=== PATIENT | female | born 1950 | race Caucasian/White ===

== ENCOUNTER 2018-09-10 09:59 | Outpatient (CLI) | payer MEDICARE, OTHER ==
--- NOTE | 2018-09-10 13:32 | XRAY Report ---
Reason: PAIN IN RIGHT LEG Procedure Date: 09/10/2018 Accession Number: [id number] / [id number] Procedure: XR - Knee 3 View RT CPT Code: FULL RESULT: EXAM: RIGHT KNEE RADIOGRAPHY EXAM DATE: 09/10/2018 10:04 AM. CLINICAL HISTORY: Pain in right leg. COMPARISON: None. TECHNIQUE: 3 views. FINDINGS: Bones: Normal. No fractures or bone lesions. Joints: Normal. No effusion. No subluxations. Soft Tissues: Normal. No soft tissue swelling. IMPRESSION: Normal knee radiography. [facility]
--- NOTE | 2018-09-10 13:32 | XRAY Report ---
Reason: PAIN IN RIGHT LEG Procedure Date: 09/10/2018 Accession Number: [id number] / [id number] Procedure: XR - Tib/Fib RT CPT Code: FULL RESULT: EXAM: RIGHT TIBIA/FIBULA RADIOGRAPHY EXAM DATE: 09/10/2018 10:26 AM. CLINICAL HISTORY: Pain in right leg. COMPARISON: None. TECHNIQUE: 2 views. FINDINGS: Bones: There is mild prominence of the posterior tibial cortex along its proximal third without evidence of aggressive periosteal reaction or aggressive osseous lesion, nonspecific finding. There is deformity of the shaft of the fibula. No fracture. Joints: The visualized knee and ankle joints are normal. No effusions. Soft Tissues: Normal. No soft tissue swelling. IMPRESSION: Nonspecific prominence of the posterior cortex of the proximal third of the tibial diaphysis as described above in the setting of a deformed tibial shaft may be sequela of remote fractures. Recommendation: Correlation to history. [facility]
== END 2018-09-10 10:00 | disposition home or self-care (01) ==
LOC: DI 09:59
PROVIDERS: ATTEND Nurse Practitioner Family
DX: M79.604 Pain in right leg (principal); M21.961 Unspecified acquired deformity of right lower leg

== ENCOUNTER 2018-11-08 10:59 | Outpatient (CLI) | payer MEDICARE, OTHER ==
[2018-11-08 17:53] LABS: FREE T3 4.69 pg/mL (2.5-3.9)
[2018-11-08 17:54] LABS: THYROID STIMULATING HORMONE 2.14 uIU/mL (0.34-5.60)
[2018-11-08 17:55] LABS: FREE T4 (FREE THYROXINE) 0.7 ng/dL (0.58-1.64)
[2018-11-08 17:58] LABS: FERRITIN 32.8 ng/mL (11.0-306.8)
[2018-11-09 07:07] LABS: ESTRADIOL <15 pg/mL; PROGESTERONE 25.2 ng/mL
== END 2018-11-08 11:00 | disposition home or self-care (01) ==
LOC: LAB.S 10:59
PROVIDERS: ATTEND Internal Medicine Endocrinology, Diabetes & Metabolism
DX: E03.8 Other specified hypothyroidism (principal); E55.9 Vitamin D deficiency, unspecified; N95.1 Menopausal and female climacteric states
CPT/HCPCS: 36415; 82306; 82670; 82728; 84144; 84403; 84439; 84443; 84481

== ENCOUNTER 2020-05-30 09:58 | Outpatient (CLI) | payer MEDICARE, OTHER ==
--- NOTE | 2020-05-30 12:38 | DEXA Report ---
PROCEDURE: Dexa Spine and/or Hip INDICATIONS: DISORDER OF BONE TECHNIQUE: Dual energy x-ray absorptiometry (DXA) was performed on a [employer] System. Regions measur ed are the AP Spine, femoral neck, and if needed forearm. COMPARISON: None. FINDINGS: Lumbar Spine: Bone Mineral Density 1.239 g/cm/cm,T score 0.5, normal Left Hip: Bone Mineral Density 0.786 g/cm/cm,T score -1.8, moderate osteopenia Left Femoral Neck: Bone Mineral Density 0.821 g/cm/cm, T score -1.6, mild to moderate osteopenia (T score greater or equal to -1.0: NORMAL) (T score from -1.1 to -2.4: OSTEOPENIA) (T score less than or equal to -2.5 to: OSTEOPOROSIS) Impression: Osteopenia most notable in the left hip. Patients with diagnosis of osteoporosis or osteopenia should have regular bone mineral density assess ment. For those eligible for Medicare, routine testing is allowed once every 2 years. Testing frequ ency can be increased for patients who have rapidly progressing disease or for those who are receivin g medical therapy to restore bone mass. Reviewed by: Dolly Oreilly MD on 05/30/2020 12:36 PM PST Approved by: Dolly Oreilly MD on 05/30/2020 12:36 PM PST Station ID: [id number]
== END 2020-05-30 09:59 | disposition home or self-care (01) ==
LOC: DI 09:58
PROVIDERS: ATTEND Registered Nurse
DX: M85.88 Other specified disorders of bone density and structure, other site (principal)